=== PATIENT | female | born 1980 | race Caucasian/White ===

== ENCOUNTER 2021-04-09 11:49 | Inpatient (IN) | payer OTHER, SELFPAY ==
[2021-04-09 17:11] VITALS: BP 124/75; PULSE 84; RESP 18; TEMP 36.9; O2SAT 100
[2021-04-09 22:00] VITALS: BP 123/78; PULSE 86; RESP 16; TEMP 36.7; O2SAT 99
[2021-04-10] MEDS: lamoTRIgine 100 mg Tablet PO ×3 (00:17→20:47)
[2021-04-10 05:13] VITALS: BMI 29.2
[2021-04-10 06:00] VITALS: BP 123/77; PULSE 78; RESP 16; TEMP 36.7; O2SAT 99
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
[2021-04-10] MEDS: amlodipine 10 mg Tablet PO (09:09)
[2021-04-10] MEDS: losartan 50 mg Tablet PO (09:10)
[2021-04-10] MEDS: ferrous sulfate EC 325 mg Tablet PO (09:10)
[2021-04-10 14:00] VITALS: BP 144/91; PULSE 90; RESP 17; TEMP 36.5; O2SAT 99
[2021-04-10] MEDS: lamoTRIgine 25 mg Tablet 50 MG PO (21:24)
[2021-04-10 21:27] VITALS: BP 126/87; PULSE 79; RESP 16; TEMP 36.6; O2SAT 98
[2021-04-11 06:00] VITALS: BP 151/95; PULSE 83; RESP 17; TEMP 36.6; O2SAT 100
[2021-04-11 08:27] LABS: Glucose Point of Care 284 mg/dL (70-110)
[2021-04-11] MEDS: lamoTRIgine 100 mg Tablet PO ×2 (08:27→21:26)
[2021-04-11] MEDS: losartan 50 mg Tablet PO (08:27)
[2021-04-11] MEDS: amlodipine 10 mg Tablet PO (08:27)
[2021-04-11] MEDS: ferrous sulfate EC 325 mg Tablet PO (08:27)
[2021-04-11 14:00] VITALS: BP 136/79; PULSE 95; RESP 18; TEMP 36.6; O2SAT 99
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
[2021-04-11 22:00] VITALS: BP 138/89; PULSE 86; RESP 17; TEMP 36.6; O2SAT 98
[2021-04-12 06:00] VITALS: BP 123/74; PULSE 78; RESP 14; TEMP 36.6; O2SAT 97
[2021-04-12 06:08] LABS: Basophils % 0.3 %; Eosinophils # 0.1 10^3/uL (0.0-0.8); Eosinophils % 3.4 %; Hematocrit 39.9 % (37.0-47.0); Hemoglobin 12.2 g/dL (11.5-15.3); Lymphocytes # 1.6 10^3/uL (0.8-4.8); Lymphocytes % 45.3 %; Mean Corpuscular HGB Conc 30.6 g/dL (30.0-36.0); Mean Corpuscular Hemoglobin 26.6 pg (28.0-34.0); Mean Corpuscular Volume 87.1 fl (81-99); Mean Platelet Volume 10.6 fL (7.4-10.4); Monocytes # 0.6 10^3/uL (0.2-0.9); Nucleated Red Blood Cells % 0 %; Platelet Count 218 10^3/cmm (130-400); Red Blood Count 4.58 10^6/uL (4.1-5.3); Red Cell Distribution Width 14.1 % (12.1-15.1); White Blood Count 3.5 10^3/uL (4.0-10.0)
[2021-04-12 06:20] LABS: Estmated Average Glucose 326
[2021-04-12 06:30] LABS: Alanine Aminotransferase 25 U/L (0-33); Albumin Level 3.9 g/dL (3.5-5.2); Alkaline Phosphatase 104 IU/L (35-105); Anion Gap 12.9 (5-19); Aspartate Amino Transferase 21 U/L (0-32); Blood Urea Nitrogen 8 mg/dL (6-20); Calcium 9.2 mg/dL (8.5-10.5); Carbon Dioxide 27 mmol/L (22-29); Chloride 99 mmol/L (98-107); Globulin 3.4 g/dL (1.3-4.6); Glomerular Filtration Rate 110.7 mL/min (90-130); Glucose 236 mg/dL (65-115); Osmolality Calculated 286 mOsm/kg (285-295); Potassium 3.9 mmol/L (3.5-5.1); Sodium 135 mmol/L (136-145); Total Bilirubin 0.2 mg/dL (0.15-1.2); Total Protein 7.3 g/dL (6.6-8.7)
[2021-04-12] MEDS: losartan 50 mg Tablet PO (07:47)
[2021-04-12] MEDS: ferrous sulfate EC 325 mg Tablet PO (07:47)
[2021-04-12] MEDS: amlodipine 10 mg Tablet PO (07:48)
[2021-04-12] MEDS: lamoTRIgine 100 mg Tablet PO (07:48)
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
--- NOTE | 2021-04-12 09:00 | PC.NURSE ---
PATIENT REPORTS SHE FEELS BETTER. ALERT AND ORIENTED BP 149/91 HR 86. PATIENT TO ROOM LAYING DOWN TO REST. WILL CONT TO MONITOR
--- NOTE | 2021-04-12 09:53 | PM.CONSULT ---
Providers/Reason For Consult Consulting Physician/Specialty*: Romulo Key MD, hospitalist Reason for Consult*: Elevated A1c Attending Physician: Jason Lima MD History of Present Illness History of Present Illness Liseth Trejo is a 40 year old female admitted to the psychiatric unit for depression and suicidal ideation. I have been consulted for elevated hemoglobin A1c. Of note, the patient also had a seizure this or morning. Nurses believes she was slightly slow afterwards, and is now back to normal. The patient reports that her blood sugar has been borderline/elevated for some time. She was placed on Metformin at unknown dose and had diarrhea and bloating and this was discontinued. She states her blood sugar was quite high when she was on dexamethasone when she had Covid 4 months ago. She does not remember any particular treatment for elevated sugar prescribed when she left the hospital. She has received one dose of vaccine since then. In regards to the seizure disorder she reports she has had seizures for the last 2 to 3 years. She has been maintained on Lamictal, and the dose increased to 150 mg twice daily. She states that previously they thought that her seizures were conversion disorder or pseudoseizures but the last neurologist she saw was concerned with something noted on EEG. She reports she is currently back to normal. Review of Systems General: Reports: 10 or more systems reviewed and unremarkable except in HPI and below Const: Denies: fever(s) Eyes: Denies: change in vision ENMT: Denies: throat pain Card: Denies: chest pain Resp: Denies: dyspnea GI: Denies: abdominal pain : Denies: flank pain Musc: Denies: neck pain Skin/Breast: Denies: rash Neuro: Denies: headache(s) Psych: Reports: depression Endo: Denies: polyuria Meds/Allergies Home Medications and Allergies Home Medications Medication Instructions Recorded Confirmed Last Taken Type Lamictal 100 mg PO BID 04/09/21 04/09/21 04/09/21 History Norvasc 10 mg PO DAILY 04/09/21 04/09/21 Unknown History ferrous sulfate 325 mg PO DAILY 04/09/21 04/09/21 Unknown History losartan 50 mg PO DAILY 04/09/21 04/09/21 04/08/21 History Allergies Allergy/AdvReac Type Severity Reaction Status Date / Time niacin Allergy Intermediate ALGY-Redness Verified 04/09/21 21:54 of Skin bee venom protein (honey bee) Allergy ALGY-Anaphy Verified 04/09/21 21:55 laxis diphenhydramine Allergy Unknown Verified 04/09/21 21:54 [From Benadryl] Current Medications Current Medications Generic Name Dose Route Start Last Admin Trade Name Joe PRN Reason Stop Dose Admin Amlodipine Besylate 10 mg 04/10/21 09:00 04/12/21 07:48 Amlodipine 10 Mg Tablet PO 10 mg DAILY YOAN Administration Ferrous Sulfate 325 mg 04/10/21 09:00 04/12/21 07:47 Ferrous Sulfate Ec 325 Mg Tablet PO 325 mg DAILY YOAN Administration Losartan Potassium 50 mg 04/10/21 09:00 04/12/21 07:47 Losartan 50 Mg Tablet PO 50 mg DAILY YOAN Administration PFSH Acute PFSH: Medical History (Updated 04/12/21 @ 09:58 by Romulo Key MD) DJD (degenerative joint disease) Hypertension New onset type 2 diabetes mellitus Obesity PTSD (post-traumatic stress disorder) Seizure disorder Surgical History (Updated 04/12/21 @ 09:57 by Romulo Key MD) History of appendectomy History of cholecystectomy History of hysterectomy History of tubal ligation Family History (Updated 04/12/21 @ 09:57 by Romulo Key MD) Other Diabetes Social History (Updated 04/12/21 @ 09:58 by Romulo Key MD) Smoking and tobacco status: never smoked Alcohol intake: never Substance/Drug Use: current Substance/Drug use type: Marijuana Vitals/I&O/Wt Last Vital Signs Temp 97.8 F 04/12/21 06:00 Pulse 78 04/12/21 06:00 Resp 14 04/12/21 06:00 BP 123/74 04/12/21 06:00 Pulse Ox 97 04/12/21 06:00 Physical Exam Narrative: EXAM NARRATIVE: General exam is a pleasant black female in no apparent distress, conversant HEENT: Atraumatic and normocephalic. Pupils equally round. Oropharynx clear. Neck is supple no lymphadenopathy or thyromegaly Cardiovascular regular rate and rhythm without murmur Lungs clear no wheezing or crackles Abdomen is soft. Positive bowel sounds. No obvious organomegaly. exam is deferred Extremities no cyanosis clubbing or edema, cap refill brisk Skin no rash Neuro no focal deficits. Data Other Data: Other data: TSH normal at outside hospital Urine drug screen positive for THC LFTs normal Hemoglobin A1c 13 A&P Assessment and plan (1) New onset type 2 diabetes mellitus: She is somewhat resistant to taking insulin currently. Initiate Metformin extended release 500 mg a day. Monitor for any bloating or diarrhea. Slowly increase dose in 1 week to twice daily if tolerated Initiate Januvia 50 mg daily Consistent carb diet Weight loss, exercise I will follow up tomorrow for patient questions or concerns. Status: Acute (2) Seizure disorder: Agree with increasing Lamictal to 150 mg twice daily which is her home dose Seizure precautions Status: Acute (3) Hypertension: Stable at this time. Continue patient's home antihypertensives Status: Acute Consult Attestations Medical Necessity Statement: As per primary Time Spent in Patient Care: Greater than 35 minutes Coding Level of Care Code Acute Gifted Teacher for Tino Soria Diagnoses New onset type 2 diabetes mellitus E11.9 Seizure disorder G40.909 Hypertension I10
[2021-04-12] MEDS: lamoTRIgine 25 mg Tablet 50 MG PO (10:08)
[2021-04-12] MEDS: metformin XR 500 MG Tablet PO (10:09)
--- NOTE | 2021-04-12 11:36 | P.PN_ITS ---
Subjective NPU Subjective: Interval history: I was called to the day room to see the patient who was having a seizure, sitting at one of the tables. She was kept safe until she recovered and her vital signs were taken. I then spoke with her afterwards. She gets quite embarrassed that she has seizures in front of people, and she was very tearful as she talked about this. That led to talking about her taking care of others, and her difficulty in accepting care for herself. She also says that the groups that she has attended have really opened her eyes and it has been kind of shocking to see how her patterns of caretaking others have led her not to take care of herself. She continued to be tearful during this part of the conversation. She does say that her mood has improved somewhat and she has been feeling somewhat more hopeful. No active suicidal or homicidal ideation currently. No auditory or visual hallucinations. The patient has had high blood sugars, and says she has had high blood sugar in the past. She says it has been recommended that she have diabetes treatment, but she has not done so. She says that both her mother and brother have diabetes. It is quite scary for her to think that she may have diabetes as well. Dr. Key was here on the unit to see her. The patient still prefers not to take antidepressant medication, but to proceed with individual psychotherapy when she leaves the hospital. Mental Status Exam MSE Comments: Initially the patient was slumped over the table with low amplitude rhythmic movements that lasted 3 or 4 minutes, with the several minute recovery period, and then another couple minutes as well. She was tearful as she recovered. Afterwards, she made good eye contact. No abnormal movements or tics noted after the seizure. She is cooperative with the exam. Speech was normal rate and volume. Mood is depressed but improved, affect congruent. She was quite tearful at times. Thought process organized. Thought content: Patient denied suicidal thoughts currently and denied homicidal thoughts. No delusions reported or noted. No auditory or visual hallucinations. Attention and concentration were intact and memory appeared reliable but none were formally tested. She is alert and oriented x3. Insight and judgment were fair, impulse control is improved. Vitals/I&O/Wt Last Vital Signs Temp 97.8 F 04/12/21 06:00 Pulse 78 04/12/21 06:00 Resp 14 04/12/21 06:00 BP 123/74 04/12/21 06:00 Pulse Ox 97 04/12/21 06:00 Data NPU : 04/12/21 05:57 04/12/21 05:57 A&P Assessment and plan (1) PTSD (post-traumatic stress disorder): Status: Acute (2) Partner relational problem: Status: Acute (3) Seizure disorder: The patient says she takes Lamictal 150 mg twice a day, instead of the 100 mg twice a day that is reported in the records. We will increase the dose to 150 mg twice a day. Status: Acute (4) New onset type 2 diabetes mellitus: Dr. Key was here to see the patient this morning. He has started her on Januvia. Status: Acute Additional A&P Information This is a 48-year-old -[place] female with a long history of trauma and PTSD with recent psychosocial stressors that have proved to be too much which led to suicidal thinking and a suicidal gesture versus attempt who presents quite tearful and looking to be connected with services but not quite ready to start medication. 1. Continue current medication: Amlodipine, losartan, Lamictal, ferrous sulfate. Patient would benefit from antidepressant medication and will continue to offer appropriate options. 2. Continue every 15 minute checks for safety. 3. Encourage individual, group and milieu therapies. 4. We will work with treatment team in the morning to establish a outpatient treatment plan. 5. Pt was seen by Dr. Vinh Key for evaluation of her seizure and high blood sugar. He agreed with the plan to increase Lamictal to 150 mg twice daily, the dose she takes at home. He also started her on Metformin and Januvia, and began a discussion about diet and exercise. We appreciate his assistance with the patient's care. Involuntary Hold Information 96 Hour Hold: 96 Hour Involuntary Admission: No Attestations NPU Medical Necessity Statement*: Inpatient hospitalization is medically necessary and the clinically appropriate intervention at this time. She continues to have intense emotions that destabilize her thinking at times. We will encourage medications as indicated. Likely length of stay 2-4 days. Coding Level of Care Code Acute [employer] Mdm Developer for Tino Soria Diagnoses PTSD (post-traumatic stress disorder) F43.10 Partner relational problem Z63.0 Seizure disorder G40.909 New onset type 2 diabetes mellitus E11.9
[2021-04-12 14:00] VITALS: BP 127/86; PULSE 108; RESP 18; TEMP 36.4; O2SAT 100
[2021-04-12] MEDS: sitagliptin 100 mg Tablet 50 MG PO (16:39)
[2021-04-12 20:16] VITALS: BP 129/76; PULSE 79; RESP 16; TEMP 37.2; O2SAT 95
[2021-04-12] MEDS: lamoTRIgine 100 mg Tablet 150 MG PO (20:32)
[2021-04-12 22:04] LABS: Glucose Point of Care 240 mg/dL (70-110)
[2021-04-13 06:00] VITALS: BP 129/76; PULSE 79; RESP 18; TEMP 37.2; O2SAT 95
[2021-04-13 06:56] LABS: Glucose Point of Care 216 mg/dL (70-110)
--- NOTE | 2021-04-13 09:19 | P.PN_ITS ---
Subjective Subjective: Interval history: Liseth was seen briefly this morning. She had no particular complaints. She stated she did not have any side effects from the Metformin. Blood sugar was lower this morning Medications: Reviewed: Yes Vitals/I&O/Wt Last Vital Signs Temp 99.0 F 04/13/21 06:00 Pulse 79 04/13/21 06:00 Resp 18 04/13/21 06:00 BP 129/76 04/13/21 06:00 Pulse Ox 95 04/13/21 06:00 Physical Exam Narrative: EXAM NARRATIVE: No apparent distress Data : 04/12/21 05:57 04/12/21 05:57 A&P Assessment and plan (1) New onset type 2 diabetes mellitus: She is somewhat resistant to taking insulin currently. Metformin and Januvia initiated yesterday at low dose Consistent carb diet Weight loss, exercise She should discharge on Metformin and Januvia, and see her primary care provider within the next week. Status: Acute (2) Seizure disorder: Agree with increasing Lamictal to 150 mg twice daily which is her home dose Seizure precautions She has not had any seizures overnight. Status: Acute (3) Hypertension: Stable at this time. Continue patient's home antihypertensives Status: Acute Attestations Medical Necessity Statement*: As per primary Coding Level of Care Code Acute Linen Controller for Tino Soria Diagnoses New onset type 2 diabetes mellitus E11.9 Seizure disorder G40.909 Hypertension I10
[2021-04-13] MEDS: lamoTRIgine 100 mg Tablet 150 MG PO (09:22)
[2021-04-13] MEDS: metformin XR 500 MG Tablet PO (09:23)
[2021-04-13] MEDS: sitagliptin 100 mg Tablet 50 MG PO (09:23)
[2021-04-13] MEDS: ferrous sulfate EC 325 mg Tablet PO (09:23)
[2021-04-13] MEDS: amlodipine 10 mg Tablet PO (09:23)
[2021-04-13] MEDS: losartan 50 mg Tablet PO (09:23)
[2021-04-13 09:30] LABS: Glucose Point of Care 317 mg/dL (70-110)
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
[2021-04-13 13:24] VITALS: BP 129/76; PULSE 79; RESP 18; TEMP 37.2; O2SAT 95
[2021-04-17 15:13] LABS: Lamotrigine (Lamictal) Level 6.1 mcg/mL (4.0-18.0)
== END 2021-04-13 16:03 | disposition home or self-care (01) | DRG 881 ==
PROVIDERS: Admitting Provider Psychiatry & Neurology Psychiatry; Visit Provider Psychiatry & Neurology Child & Adolescent Psychiatry
DX: F32.9 Major depressive disorder, single episode, unspecified (principal); R45.851 Suicidal ideations; Z68.41 Body mass index [BMI] 40.0-44.9, adult; E66.9 Obesity, unspecified; F43.10 Post-traumatic stress disorder, unspecified; Z63.0 Problems in relationship with spouse or partner; G40.909 Epilepsy, unspecified, not intractable, without status epilepticus; Z86.16 Personal history of COVID-19; I10 Essential (primary) hypertension; E11.9 Type 2 diabetes mellitus without complications; F12.90 Cannabis use, unspecified, uncomplicated
CPT/HCPCS: 36415; 36416; 80053; 80175; 82962; 83036; 85025; 97150; 97165